=== PATIENT | male | born 1965 | race Caucasian/White ===

== ENCOUNTER 2019-02-24 19:39 | Emergency (ER) | payer OTHER ==
[~2019-02-24] VITALS: Ht 177.8 cm; Wt 81.6 kg
[2019-02-24 19:48] VITALS: BP_SYST 141
[2019-02-24 20:23] LABS: BILIRUBIN,URINE NEGATIVE (NEGATIVE); BLOOD, URINE 3+ (NEGATIVE); CLARITY/URINE CLEAR (CLEAR); COLOR,URINE YELLOW (YELLOW); GLUCOSE,URINE NEGATIVE (NEGATIVE); KETONES,URINE NEGATIVE (NEGATIVE); LEUKOCYTE ESTERASE ,URINE 1+ (NEGATIVE); NITRITE, URINE NEGATIVE (NEGATIVE); PROTEIN URINE NEGATIVE (NEGATIVE); UROBILINOGEN,URINE 0.2 (0.2-1.0)
[2019-02-24 20:36] LABS: BACTERIA,URINE RARE /HPF (None Seen); RBC,URINE 20-50 /HPF (0-3)
--- NOTE | 2019-02-24 21:51 | NUR ---
Patient to ER bed 08 to gown for evaluation. Side rails up.
--- NOTE | 2019-02-24 21:55 | NUR ---
Pt brought by partner, A&Ox4, pt presents to ER with pain with urination, pt denies bleeding , afebrile, skin pink and warm, cap refill <3.
--- NOTE | 2019-02-24 22:00 | NUR ---
Dr Eden at bedside examining patient
[2019-02-24] MEDS ORDERED: PHENAZOPYRIDINE HCL 100 MG TABLET PO ONE (22:15)
[2019-02-24 23:17] VITALS: BP_SYST 128
--- NOTE | 2019-02-24 23:18 | NUR ---
Patient given written and verbal discharge instructions and verbalizes understanding. ER MD discussed with patient the results and treatment provided. Patient in stable condition. ID arm band removed. Rx of Pyrisium and Motrin given. Patient educated on pain management and to follow up with PMD. Pain Scale 2/10 tolerable for patient . Opportunity for questions provided and answered. Medication side effect fact sheet provided.
== END 2019-02-24 23:17 | disposition home or self-care (01) ==
LOC: SED 19:39
DX: N39.0 Urinary tract infection, site not specified (principal); N20.0 Calculus of kidney
CPT/HCPCS: 81000-TC; 87086; 99284

== ENCOUNTER 2019-03-31 22:52 | Emergency (ER) | payer OTHER ==
[~2019-03-31] VITALS: Ht 177.8 cm; Wt 81.6 kg
[2019-03-31 23:08] VITALS: BP_SYST 158; BP_SYST 182
--- NOTE | 2019-03-31 23:08 | NUR ---
Patient to ER bed H1 to gown for evaluation. Side rails up. Report given to LOLY Michele.
[2019-03-31] MEDS ORDERED: ONDANSETRON 4 MG ODT TAB PO ONE (23:15)
--- NOTE | 2019-03-31 23:17 | NUR ---
Re-checked blood pressure, 158/94. Dr. Hilton made aware.
[2019-03-31] MEDS ORDERED: ONDANSETRON HCL 4 MG/2 ML VIAL ONE (23:19)
[2019-03-31] MEDS ORDERED: ONDANSETRON 4 MG ODT TAB ONE (23:20)
[2019-04-01] MEDS ORDERED: NACL 0.9% 1,000 ML IV ONE ×2 (00:11→02:45)
[2019-04-01 00:25] LABS: BASOPHILS % (AUTO) 0.3 % (0.0-2.0); EOSINOPHILS % (AUTO) 0.2 % (0.0-4.0); HEMATOCRIT 38.2 % (36-54); HEMOGLOBIN 13.4 g/dL (14.0-18.0); LYMPHOCYTES # (AUTO) 0.8 K/uL (1.0-5.5); LYMPHOCYTES % (AUTO) 10.1 % (20.5-51.5); MEAN CORPUSCULAR HEMOGLOBIN 31 pg (27-31); MEAN CORPUSCULAR HGB CONC 35 % (32-36); MEAN CORPUSCULAR VOLUME 87 fL (79.0-98.0); MONOCYTES # (AUTO) 0.6 K/uL (0.0-1.0); MONOCYTES % (AUTO) 6.6 % (1.7-9.3); NEUTROPHILS # (AUTO) 6.9 K/uL (1.8-7.7); NEUTROPHILS % (AUTO) 82.8 % (40.0-70.0); PLATELET COUNT (AUTO) 227 K/uL (130-430); RED BLOOD CELL COUNT(AUTO) 4.38 MIL/uL (4.2-6.2); RED CELL DISTRIBUTION WIDTH 12.4 % (9.0-15.0); WHITE BLOOD COUNT (AUTO) 8.4 K/uL (4.8-10.8)
[2019-04-01 00:44] LABS: CALCIUM 9.4 mg/dL (8.4-11.0); CREATININE 1.27 mg/dL (0.55-1.30); POTASSIUM 3.9 mmol/L (3.5-5.1)
[2019-04-01 00:49] LABS: ALBUMIN 4.1 g/dL (3.4-4.8); TOTAL BILIRUBIN 1.2 mg/dL (0.0-1.0)
--- NOTE | 2019-04-01 01:00 | NUR ---
Pt BIB by family to ED C/O nausea/vomiting since Monday. Pt came back from [place] today. was in [place] for 8 days. unable to hold any fluid or solid food down. Pt remains A/A/O x 4 thru out initial assessment process. No other complaints and or injuries noted at this time. VSS no s/s of acute distress at this time. Resting on gurney rails up
[2019-04-01 01:08] LABS: BILIRUBIN,URINE 1+ (NEGATIVE); BLOOD, URINE 3+ (NEGATIVE); CLARITY/URINE CLEAR (CLEAR); COLOR,URINE YELLOW (YELLOW); GLUCOSE,URINE NEGATIVE (NEGATIVE); KETONES,URINE 1+ (NEGATIVE); LEUKOCYTE ESTERASE ,URINE 1+ (NEGATIVE); NITRITE, URINE NEGATIVE (NEGATIVE); PROTEIN URINE 1+ (NEGATIVE)
[2019-04-01 01:19] LABS: BACTERIA,URINE MODERATE /HPF (None Seen); RBC,URINE 80-100 /HPF (0-3)
[2019-04-01] MEDS ORDERED: cefTRIAXone 1 GM IVPB PREMIX 50 ML IV ONE (02:00)
--- NOTE | 2019-04-01 02:06 | NUR ---
ER at bedside examining patient.
--- NOTE | 2019-04-01 02:10 | NUR ---
Dr. Hilton bedside for Pt update
--- NOTE | 2019-04-01 02:33 | NUR ---
Pt taken to Radiology in stable condition
--- NOTE | 2019-04-01 03:13 | NUR ---
ER Dr. Hilton at bedside explaining results to patient and .
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
--- NOTE | 2019-04-01 03:20 | NUR ---
# 18 gauge angiocath placed to LAC. Use of asceptic technique. Opsite placed over site. Blood return noted. Blood for lab drawn from site. Flushed with 10 cc of normal saline. No evidence of infiltration noted. Patient tolerated well.
[2019-04-01] MEDS ORDERED: CLON0.5T12 PO (03:21)
[2019-04-01] MEDS ORDERED: WELSR100 PO (03:21)
[2019-04-01] MEDS ORDERED: SIMV40TA5 PO (03:21)
[2019-04-01] MEDS ORDERED: OMEP20CA10 PO (03:21)
[2019-04-01] MEDS ORDERED: TRAZ-218 PO (03:21)
--- NOTE | 2019-04-01 03:59 | NUR ---
Florencio hernández in ED - 04/01/19 at 0406 by [email or web address] S/W Irena from [facility], gave report regarding Pt going over under the care of Dr. Olivera
--- NOTE | 2019-04-01 04:04 | NUR ---
S/W Ciera from [facility], gave report regarding Pt going over under the care of Dr. Olivera
[2019-04-01 04:18] VITALS: BP_SYST 158
--- NOTE | 2019-04-01 04:18 | NUR ---
Patient to be transferred to [place] ER. Is being transferred due to higher level of care. Receiving facility has accepting physician and available space. ER physician has signed transfer form. Patient or responsible constitution party has agreed to transfer and signed form. Patient belongings inventoried and will be sent with patient. Copy of nursing notes, lab reports, EKG, Physicians Orders and X-rays to be sent with patient. Report called to Ciera at receiving facility. Receiving physician is Dr. Olivera. [facility] is present to transport Pt
== END 2019-04-01 04:18 | disposition short-term general hospital (02) ==
LOC: SED 22:52
DX: I62.00 Nontraumatic subdural hemorrhage, unspecified (principal); N40.0 Benign prostatic hyperplasia without lower urinary tract symptoms; Z87.442 Personal history of urinary calculi; Z79.899 Other long term (current) drug therapy
CPT/HCPCS: 36415; 70450; 74176; 80053; 81000; 83605; 83690; 85025; 87040; 87086; 96361; 96365; 99285; J0696; J2405; J7030; Q0162; 99284